=== PATIENT | female | born 1995 | race African-American/Black ===

== ENCOUNTER 2017-02-02 15:35 | Emergency (ER) | payer OTHER ==
--- NOTE | ~2017-02-02 | CT2 ---
[facility] A Service of [facility] & [facility] / [facility] RADIOLOGY TEXT RESULTS PATIENT: DAMIR GRAVES LOCATION: CFTX : [birth year] UNIT #: [id number] AGE: [address]: Nicky Davis SEX: F ORDER DR: [id number] [facility] [address] [place], [place] [address] [id number] E MR#: [id number] #: [id number] NAME: DAMIR GRAVES : 1995 SEX: F STUDY DATE/TIME: 02/02/2017 18:31 UNIT: CFTX ROOM: STUDY DESCRIPTION: CT Abd and Pelv W Cont Attending Physician: Nicky Davis P.A.-C. Ordering Physician: Nicky Davis P.A.-C. Primary Care Physician: Primary Care Physician No MEDICAL IMAGING REPORT This report is preliminary unless electronic signature is present EXAM CT of the abdomen and pelvis with IV contrast media HISTORY Pelvic pain, vaginal bleeding, hematuria for 5 days. TECHNIQUE Axial imaging of the abdomen and pelvis was performed with IV contrast media. This CT examination was performed with one or more of the following radiation dose reduction techniques: automatic exposure control, adjustment of mA and/or kV according to patient size, and iterative reconstruction. FINDINGS Lung bases are clear. Liver, gallbladder, spleen, adrenal glands, and pancreas are normal. Both kidneys are normal. No dilated or thickened loops of bowel are seen. The appendix is normal. The uterus is unremarkable. On the right, the patient has a cyst within the ovary which shows peripheral enhancement. It measures 2.5 cm in diameter. There is trace fluid dependently in the pelvis which can be seen physiologically. No pelvic masses or fluid collections are identified. CONCLUSION Enhancing cyst in the right adnexa measuring 2.5 cm. Trace fluid within the cul-de-sac. CT of the abdomen and pelvis is otherwise negative. Dictated by... Matias Reed M.D. THIS IS AN ELECTRONICALLY VERIFIED REPORT Matias Reed M.D. at 02/04/2017 4:41 PM [facility] A Service of [facility] & [facility] / [facility] RADIOLOGY TEXT RESULTS PATIENT: DAMIR GRAVES LOCATION: [facility] : 95 UNIT #: [id number] AGE: [address]: Nicky Davis SEX: F ORDER DR: KISHORE/sharon TD: 02/03/2017 09:00 JOB #: [id number] MEDICAL IMAGING REPORT Page 1 of 1 COPY
[2017-02-02 16:49] LABS: URINE SOURCE CLEAN CATCH
[2017-02-02 17:09] LABS: BASOPHIL# 0.1 X10e3 (0-0.3); BASOPHIL% 0.6 % (0-2.5); EOSINOPHIL% 0.3 % (0.0-7.0); HEMATOCRIT 39.1 % (35.0-45.0); LYMPHOCYTE# 1.6 X10e3 (1.0-3.5); LYMPHOCYTE% 19.2 % (17.0-45.0); MEAN CELL VOLUME 89.4 FL (83-96); MEAN CORPUSCULAR HEMOGLOBIN 29.6 PG (28-34); MEAN CORPUSCULAR HGB CONC 33.1 g/dL (30-36); MEAN PLATELET VOLUME 8.1 FL (6.5-11.5); MONOCYTE# 0.7 X10e3 (0-1.0); MONOCYTE% 8.1 % (3.0-12.0); NEUTROPHIL# 6.1 X10e3 (1.5-7.1); NEUTROPHIL% 71.8 % (40-75); PLATELET COUNT 249 X10e3 (140-420); RED BLOOD COUNT 4.38 X10e (3.90-5.30); RED CELL DISTRIBUTION WIDTH 12.6 % (11.0-15.5); WHITE BLOOD COUNT 8.5 X10e3 (4.0-10.5)
[2017-02-02 17:17] LABS: DIFF IND NO
[2017-02-02 17:30] LABS: BUN/CREATININE RATIO 13.33; CALCIUM SERUM 9.3 mg/dL (8.4-10.2); CREATININE SERUM 0.6 mg/dL (0.6-1.4); POTASSIUM 3.6 mmol/L (3.5-5.1)
[2017-02-02 17:30] LABS: URINE APPEARANCE CLOUDY; URINE BLOOD 3+ (NEG); URINE COLOR DK YELLOW; URINE GLUCOSE NEG (NEG); URINE KETONE 3+ (NEG); URINE LEUKOCYTE ESTERASE 3+ (NEG); URINE NITRATE POS (NEG); URINE PROTEIN 2+ (NEG)
[2017-02-02 17:34] LABS: CULTURE INDICATED? YES; URBCS1 AUWI INNUM /[HPF] (0-2); URINE SQUAMOUS EPITHELIAL CELL OCC /[HPF]; UWBCS1 AUWI 200-300 (0-5)
[2017-02-02 17:53] LABS: URINE BACTERIA AUWI 1+ (NEGATIVE); URINE BILIRUBIN NEG (NEG)
[2017-02-06 10:10] LABS: CHLAMYDIA TRACH Detected (Not Detected); N GONOR Detected (Not Detected)
== END 2017-02-02 19:20 | disposition home or self-care (01) ==
LOC: CFTX 15:35 → CED 15:35 → CFTX 17:26
PROVIDERS: Physician Assistant
DX: N95.2 Postmenopausal atrophic vaginitis (principal); N83.201 Unspecified ovarian cyst, right side; N30.01 Acute cystitis with hematuria; Z98.890 Other specified postprocedural states
CPT/HCPCS: 36415; 51701; 74177; 80048; 81003; 84703; 85025; 87086; 87491; 87591; 87808; 87905; 96374; 96375; 99284; J0696; J1885; Q9967